=== PATIENT | female | born 1995 | race African-American/Black ===

== ENCOUNTER 2019-11-19 01:16 | Emergency (ER) | payer OTHER ==
[~2019-11-19] VITALS: Ht 154.9 cm; Wt 52.3 kg
[2019-11-19] MEDS ORDERED: ACETAMINOPHEN 500 MG TABLET PO ONE (03:30)
[2019-11-19] MEDS ORDERED: NEOMYCIN/POLYMYXIN B/HYDROCORT 10 ML OTIC SUSPENSION AU ONE (03:30)
[2019-11-19 05:00] VITALS: BP 116/68
== END 2019-11-19 05:30 | disposition home or self-care (01) ==
LOC: EMS 01:16
DX: H60.91 Unspecified otitis externa, right ear (principal)